=== PATIENT | male | born 1995 | race Caucasian/White ===

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

== ENCOUNTER 2017-05-16 22:00 | Emergency (ER) | payer OTHER ==
[~2017-05-16] VITALS: Ht 172.7 cm; Wt 76.7 kg
[2017-05-16 23:12] VITALS: BP 148/88
== END 2017-05-16 23:12 | disposition home or self-care (01) ==
LOC: ED 22:00
DX: H65.91 Unspecified nonsuppurative otitis media, right ear (principal)

== ENCOUNTER 2017-12-22 00:13 | Emergency (ER) | payer OTHER ==
[~2017-12-22] VITALS: Ht 175.3 cm; Wt 80.3 kg
[2017-12-22 00:28] VITALS: Ht 175.3 cm; Wt 80.3 kg
[2017-12-22 01:30] VITALS: BP 136/91
== END 2017-12-22 01:30 | disposition home or self-care (01) ==
LOC: ED 00:13
DX: R07.81 Pleurodynia (principal); R05 Cough

== ENCOUNTER 2018-06-07 10:49 | Emergency (ER) | payer OTHER ==
[~2018-06-07] VITALS: Ht 165.1 cm; Wt 78.5 kg
[2018-06-07 10:57] VITALS: Ht 165.1 cm; Wt 78.5 kg
[2018-06-07 12:38] VITALS: BP 137/84
== END 2018-06-07 12:37 | disposition home or self-care (01) ==
LOC: ED 10:49
DX: B34.9 Viral infection, unspecified (principal)